=== PATIENT | male | born 1940 | race Hispanic/Latino ===

== ENCOUNTER → 2021-12-18 | Day surgery (SDC) | payer MEDICARE ==
[~2021-12-18] MED LIST: Fentanyl 100 MCG/2 ML VIAL ONE; Iopamidol-M 200 41% 20 ML VIAL ONE; Lidocaine 1% PF 5 ML VIAL ONE; Midazolam HCl 5 mg/5 ml Vial ONE; Sodium Bicarbonate 2.5 MEQ/5 ML VIAL ONE
[2021-12-18 10:48] VITALS: BMI 20.9
[2021-12-18 11:11] VITALS: BP 101/58; TEMP 97.9
== END | disposition home or self-care (01) ==
LOC: CSHCT 10:01
PROVIDERS: ATTEND Urology
PROC: 0T9B30Z Drainage of Bladder with Drainage Device, Percutaneous Approach (ICD-10-PCS; principal; 2021-12-18)
DX: N40.1 Benign prostatic hyperplasia with lower urinary tract symptoms (principal); R33.8 Other retention of urine; Z79.2 Long term (current) use of antibiotics; Z79.899 Other long term (current) drug therapy; Z88.1 Allergy status to other antibiotic agents
CPT/HCPCS: 51102; C2627; J2250; J3010; Q9966